=== PATIENT | female | born 1955 | race Caucasian/White ===

== ENCOUNTER → 2017-04-17 | Outpatient (CLI) | payer OTHER | LOC: CIMAGING 14:11 | PROVIDERS: ATTEND Emergency Medicine | DX: J45.909 Unspecified asthma, uncomplicated (principal) | CPT/HCPCS: 71020-PO ==

== ENCOUNTER 2019-01-28 12:02 | Emergency (ER) | payer OTHER ==
--- NOTE | 2019-01-28 12:49 | EDPHY ---
H & P Time Seen by Provider: 01/28/19 12:49 HPI/ROS: CHIEF COMPLAINT: Left thigh and calf swelling HISTORY OF PRESENT ILLNESS: Left hip replacement Thursday of this week. Had some surrounding redness since but over the last 48 hr developed left thigh and calf swelling. She feels a tearing sensation in her distal thigh. Not associated with any new weakness or numbness in the foot. No fevers or chills and no chest pain or coughing or shortness of breath. REVIEW OF SYSTEMS: Eye: no change in vision ENT: no sore throat Cardiac: no chest pain or syncope Pulmonary: no cough or SOB Abdomen: no vomiting, diarrhea, abdominal pain Musculoskeletal: HPI Skin: no rash Neuro: no headache, chronic left middle toe decreased sensation after previous procedure Constitutional: no fever : no urinary symptoms A comprehensive 10 point review of systems is otherwise negative aside from elements mentioned in the history of present illness. PAST MEDICAL HISTORY: Hip replacement, arthritis, pilonidal cyst Social history: Nonsmoker General Appearance: Alert and conversant, cooperative. Eyes: No scleral icterus. ENT, Mouth: Normal mucous membranes. Respiratory: Normal respiratory effort, breath sounds equal, lungs are clear to auscultation. Speaks in full sentences. Cardiovascular: Regular rate and rhythm. Gastrointestinal: Abdomen is soft and non tender. Neurological: Alert, face symmetric, normal motor and sensory in extremities. Skin: Mild surrounding erythema from the incision site. Dressing is clean dry and intact. It is not hot to the touch. No lymphangitis. No crepitus. Musculoskeletal: Some swelling of the left leg and thigh but compartments are soft. Psychiatric: Not agitated. Emergency Department course/MDM: The ultrasound performed of the left lower extremity. Does not clinically have pulmonary embolism symptoms. Think that cellulitis infection fasciitis or abscess or also unlikely. Smoking Status: Never smoked Constitutional: Initial Vital Signs Temperature (C) 36.5 C 01/28/19 12:18 Heart Rate 77 01/28/19 12:18 Respiratory Rate 18 01/28/19 12:18 Blood Pressure 113/84 H 01/28/19 12:18 O2 Sat (%) 96 01/28/19 12:18 O2 Delivery Mode Room Air Allergies/Adverse Reactions: No Known Allergies Allergy (Verified 01/28/19 12:17) Home Medications: Medication Instructions Recorded Aspirin 81mg (*) 01/28/19 Dulcolax 01/28/19 Hydrocodone-Acetamin 2.5-325 01/28/19 Lisinopril 01/28/19 celeCOXIB 01/28/19 Medical Decision Making - Diagnostics Imaging Results: Imaging Impressions Extremity Venous Study 01/28/19 12:33 Impression: Negative for left lower extremity DVT. Findings and recommendations discussed with [facility] at 1356 hour, 01/28/2019. Imaging: Discussed imaging studies w/ yardage caller Radiologist Departure - Departure Disposition: Home, Routine, Self-Care Clinical Impression: Swelling of left lower extremity Condition: Good Instructions: Leg Edema (ED) Additional Instructions: Ultrasound shows no blood clot. If you still have a lot of leg swelling or pain in 1 week you should have the ultrasound repeated. Referrals: Maged Ceballos DO [Primary Care Provider] - As per Instructions
[2019-01-28 14:28] VITALS: BP 129/77
== END 2019-01-28 14:27 | disposition home or self-care (01) ==
LOC: SUPCPDRO 12:02
DX: M79.89 Other specified soft tissue disorders (principal)